=== PATIENT | female | born 1990 | race Caucasian/White ===

== ENCOUNTER → 2020-03-13 | Outpatient (CLI) | payer OTHER ==
--- NOTE | 2020-03-13 12:18 | KCIC ---
EXAMINATION: Magnetic resonance imaging (MRI) of the lumbar spine without contrast 03/13/2020 8:45 AM HISTORY: Lumbago TECHNIQUE: Multiplanar multi-weighted MRI of the lumbar spine was performed without intravenous contrast using the standard lumbar spine protocol. Contrast information: None administered. COMPARISON: None available. FINDINGS: There is minimal retrolisthesis of L5 on S1. Moderate disc height loss at L5-S1 with annular fissure. Vertebral bodies demonstrate normal signal intensity on all sequences. There are no compression fractures. The conus medullaris terminates at the level of L1. The distal spinal cord signal intensity is normal. Disc desiccation is identified at L4-L5 and L5-S1. Limited views of the abdomen and pelvis show no soft tissue abnormality. The aorta is normal. L1-L2: The disc is normal in configuration. There is no facet arthropathy. There is no neuroforaminal stenosis. There is no spinal canal stenosis. L2-L3: The disc is normal in configuration. There is no facet arthropathy. There is no neuroforaminal stenosis. There is no spinal canal stenosis. L3-L4: The disc is normal in configuration. There is no facet arthropathy. There is no neuroforaminal stenosis. There is no spinal canal stenosis. L4-L5: There is mild disc bulge with central disc protrusion. Mild facet arthropathy. Mild bilateral neuroforaminal stenosis. Mild spinal canal stenosis. There is mild narrowing of the left lateral recess. L5-S1: There is a circumferential disc bulge with central disc extrusion. Moderate facet arthropathy. Moderate to severe bilateral neuroforaminal stenosis. Mild spinal canal stenosis. IMPRESSION: Mild to moderate degenerative changes of the lumbar spine as described in detail above. Electronically signed by: Patricia Franco MD (03/13/2020 12:15 PM) [id number]
== END ==
LOC: KCIC MRI 08:13
PROVIDERS: ATTEND Physician Assistant Medical
DX: M47.817 Spondylosis without myelopathy or radiculopathy, lumbosacral region (principal); M48.07 Spinal stenosis, lumbosacral region
CPT/HCPCS: 72148

== ENCOUNTER → 2020-04-11 | Outpatient (CLI) | payer OTHER ==
[~2020-04-11] MED LIST: TRAM50TA PO
--- NOTE | 2020-04-11 08:52 | PDOC1 ---
INITIAL PAIN CONSULT DATE OF SERVICE: DOS: DATE: 04/11/20 TIME: 08:46 CHIEF COMPLAINT: Chief Complaint: Low back and left lower extremity pain HISTORY OF PRESENT ILLNESS: 29-year-old female with presents with history of pain low back left lower extremity for multiple years worse over the past 6 to 8 months without any specific injury or accident that she is aware of. Patient reports the pain is increasing in her low back rating the posterior gluteus posterior thigh posterior calf on the left side only worse with walking standing changing positions better with laying down but worse with prolonged sitting. Patient reports it wakes her from sleep about 3-4 times a night does not affect her bowel bladder control or ability to walk is mostly noticeable when she is sitting for prolonged periods or standing patient ports radiating the lower extremity describes pain as throbbing and shooting, more constant with time burning and aching as well. Patient rates her disability rating from 0-10 10 being the worst is a 3 with family home responsibilities 8 with recreation and social activity and sexual behavior for with occupation 0 with self-care and life support activities. Patient has been taking tramadol also naproxen and meloxicam all of which only decrease the pain by about 20%. Patient had physical therapy in January of this year and is still doing the exercises from therapy but she feels that it may actually be making the pain worse in the left leg. She did have an MRI scan of the lumbar spine showing L4-5 with a mild disc bulge mild bilateral neuroforaminal stenosis and mild narrowing of the left lateral recess L5-S1 shows circumferential disc bulge with central disc extrusion moderate to severe bilateral neuroforaminal stenosis and mild spinal canal stenosis. Patient reports no loss of motor function but significant fatigability with standing or sitting for prolonged periods. PAST MEDICAL HISTORY: PMH: Depression and anxiety, childbirth x2, cigarette smoking PREVIOUS SURGERIES: Past Surgical Hx: Tubal ligation, wisdom tooth extraction CURRENT MEDICATIONS: Current Meds: See chart ALLERGIES; Allergies: Coded Allergies: No Known Drug Allergies (Unverified , 04/11/20) FAMILY HISTORY: Family Hx: No major medical problems or conditions that she is aware of SOCIAL HISTORY: Social Hx: Patient drinks alcohol only rarely, smokes less than a pack of cigarettes and has for 12 years continues to smoke does not use any illegal illicit or recreational drugs has 2 children living at home is single and works in a seated occupation position lives locally in [facility] REVIEW OF SYSTEMS: ROS: Positive for those items mentioned in history of present illness, all systems are reviewed, otherwise negative, is complete full and well-documented on patient's chart PHYSICAL EXAM: VS: Blood pressure is 124/82 pulse 107 respirations 12 temperature is 90.2 F height is 5 feet 6 inches weight is 135 pounds PE: PHYSICAL EXAMINATION: GENERAL: The patient is awake, alert, oriented, appropriate, very pleasant demeanor HEENT: Shows normocephalic, atraumatic. Extraocular movements are intact and symmetrical. Oral cavity: Mucous membranes moist and pink. Dentition is intact. NECK: Shows anterior throat supple without palpable lymphadenopathy noted. Swallow reflex symmetrical. CHEST: Shows normal on inspection. Breath sounds are clear bilaterally, no rales rhonchi wheezes auscultated. HEART: Shows S1, S2 clear. No murmurs auscultated. ABDOMEN: Soft, nontender, nondistended, flat. No palpable organomegaly is noted. No rebound or guarding demonstrated. BACK: Shows spine grossly in the midline. Normal-appearing cervical lordotic curvature. There is slightly increased thoracic kyphosis, some minor flattening of the lumbar lordotic curvature. Lumbar paraspinous muscles show symmetrical on inspection, on palpation shows some moderate tenderness diffusely throughout the upper, middle and lower distribution of the paraspinous muscles without specific trigger points, without radiation of pain. The patient has good rotational motion of the lumbar spine, both laterally as well as extension and flexion without significant difficulty. No tenderness over the spinous processes, sacrum or sacroiliac regions. EXTREMITIES: Lower extremities show deep tendon reflexes 2+ in the patellar and tendo calcaneus tendons. Motor exam is 5 on a scale of 5 with right dorsiflexion, extension, quadriceps and hamstring flexion and 4/5 on the left. Peripheral pulses are 1+ posterior tibial. No peripheral edema is noted bilaterally. Lower extremities are warm and dry to touch, equal in color and appearance. Straight leg raise noted to be negative bilaterally. Gaenslen's and Joe's maneuvers are negative as well. The patient is able to stand, stand on her toes without difficulty or loss of balance walks with a normal- appearing gait for short distance in the office today not using any assistive device such as canes or walkers to ambulate. SKIN: Shows warm and dry, good turgor. No edema. No sores, rashes or bruising throughout. IMPRESSION: Impression: 29-year-old female with long history low back left lower extremity pain that worse over the past 8 months in a radicular fashion following an L5-S1 dermatomal distribution MRI scan lumbar spine as noted Cigarette smoking Plan: Options were discussed with the patient including conservative medical management physical therapies interventional techniques. Patient would like to pursue interventional techniques. We discussed a lumbar epidural steroid injection using descriptions as well as anatomical model to describe the procedure. Patient will wait for preauthorization with her insurance provider a nd would like to proceed. Patient will be given Medrol Dosepak called into her local pharmacy with instructions side effects be aware of discussed with the medication. Patient will follow up as scheduled for lumbar epidural steroid injection translaminar approach at the L5-S1 level. NABIL GOTTI MD Apr 11, 2020 08:52
== END | disposition home or self-care (01) ==
LOC: PNCL 08:10
PROVIDERS: ATTEND Anesthesiology
DX: M54.5 Low back pain (principal); M79.605 Pain in left leg; F32.9 Major depressive disorder, single episode, unspecified; F41.9 Anxiety disorder, unspecified; Z87.891 Personal history of nicotine dependence; Z98.51 Tubal ligation status; Z98.890 Other specified postprocedural states; Z79.899 Other long term (current) drug therapy
CPT/HCPCS: G0463

== ENCOUNTER → 2020-04-29 | Outpatient (CLI) | payer OTHER ==
[~2020-04-29] MED LIST changes: +IOHEXOL 180 MG/ML 10 ML VIAL. ONE; +methylPREDNISolone ACETATE 40 MG/ML VIAL. ONE; +methylPREDNISolone ACETATE 80 MG/ML VIAL. ONE
--- NOTE | 2020-04-29 08:36 | PDOC ---
Progress Note - Pain Clinic Date of Service: DOS: DATE: 04/29/20 TIME: 08:33 Diagnosis: Dx: Lumbar radiculopathy with lumbar degenerative disease lumbar spinal stenosis History or Present Illness: HPI: 29-year-old female returns follow-up status post initial evaluation and preauthorization for lumbar epidural steroid injection. Patient is obtained that now would like to proceed. Patient reports still pain low back and left lower extremity posterior gluteus posterior left thigh posterior calf radiating into the lower extremity. Patient ports aching and sharp shooting at times burning and constant in the low back patient ports a 9 on scale 10 is worse over the past week 7 on average for its least and is a 7 today. Patient reports no new motor or sensory deficits no new bowel bladder incontinence or other complaints. Physical Exam: VS: Blood pressure is 117/75 pulse 83 respirations 18 temperature 98.2 F height 5 feet 6 inches weight is 133 pounds PE: PHYSICAL EXAMINATION: GENERAL: The patient is awake, alert, oriented, appropriate, very pleasant demeanor HEENT: Shows normocephalic, atraumatic. Extraocular movements are intact and symmetrical. Oral cavity: Mucous membranes moist and pink. NECK: Shows anterior throat supple without palpable lymphadenopathy noted. Swallow reflex symmetrical. CHEST: Shows normal on inspection. Breath sounds are clear bilaterally. HEART: Shows S1, S2 clear. No murmurs auscultated. ABDOMEN: Soft, nontender, nondistended. No palpable organomegaly is noted. No rebound or guarding demonstrated. BACK: Shows spine grossly in the midline. Normal-appearing cervical lordotic curvature. There is slightly increased thoracic kyphosis, some minor flattening of the lumbar lordotic curvature. Lumbar paraspinous muscles show symmetrical on inspection, on palpation shows some moderate tenderness diffusely throughout the upper, middle and lower distribution of the paraspinous muscles without specific trigger points, without radiation of pain. The patient has good rotational motion of the lumbar spine, both laterally as well as extension and flexion without significant difficulty. No tenderness over the spinous processes, sacrum or sacroiliac regions. EXTREMITIES: Lower extremities show deep tendon reflexes 2+ in the patellar and tendo calcaneus tendons. Motor exam is 5 on a scale of 5 with right dorsiflexion, extension, quadriceps and hamstring flexion and 4/5 on the left. Peripheral pulses are 1+ posterior tibial. No peripheral edema is noted b ilaterally. Lower extremities are warm and dry to touch, equal in color and appearance. SKIN: Shows warm and dry, good turgor. No edema. No sores, rashes or bruising throughout. Procedure: Procedure: Options were discussed with the patient. Patient chart was reviewed as her current regimen updated current review of systems updated today as well. We will proceed with a lumbar epidural steroid injection today with fluoroscopic guidance. Risks were discussed including but not limited to: Bleeding, infection, possibility of epidural hematoma and subsequent neurological compromise, dural puncture, headaches, spinal cord and/or nerve damage, side effects of steroid medication, and poor results regarding pain control. Patient understands wished to proceed. Patient will return to the clinic in approximate 2 weeks for follow-up, was counseled as to return appointment activity level and side effects to be aware of. Medication Injected: Med Injected: Procedure is lumbar epidural steroid injection under local anesthetic using sterile prep and drape at the L5-S1 level using C-arm fluoroscopic guidance in both AP and lateral views medications injected is 120 mg Depo-Medrol + 10 mL preservative-free normal saline and 2 mL contrast- condition at discharge is stable patient tolerated procedure well had no complications. Condition at Discharge: Condition at Discharge: Condition at discharge stable, patient tolerated procedure well and had no complications. NABIL GOTTI MD Apr 29, 2020 08:36
== END | disposition home or self-care (01) ==
LOC: PNCL 07:53
PROVIDERS: ATTEND Anesthesiology
DX: M48.061 Spinal stenosis, lumbar region without neurogenic claudication (principal); M54.16 Radiculopathy, lumbar region; Z98.890 Other specified postprocedural states
CPT/HCPCS: 62323; J1030; J1040; Q9965

== ENCOUNTER → 2020-05-13 | Outpatient (CLI) | payer OTHER ==
[~2020-05-13] MED LIST changes: +DOCU-109 PO; +HYDR-2765 PO; -IOHEXOL 180 MG/ML 10 ML VIAL. ONE; -methylPREDNISolone ACETATE 40 MG/ML VIAL. ONE; -methylPREDNISolone ACETATE 80 MG/ML VIAL. ONE; +no meds
--- NOTE | 2020-05-13 08:40 | PDOC ---
Progress Note - Pain Clinic Date of Service: DOS: DATE: 05/13/20 TIME: 08:37 Diagnosis: Dx: Lumbar radiculopathy with lumbar degenerative disc disease lumbar spinal stenosis History or Present Illness: HPI: 29-year-old female returns follow-up status post lumbar epidural steroid injection x1. Patient reports about 75% improvement in the low back and left lower extremity pain for the first 2 weeks or so the pain returning now not quite to baseline but increasing the low back and left lower extremities radiating pain posterior gluteus posterior thigh on the left and posterior calf patient reports is worse with walking standing changing positions beginning to awaken her from sleep once again initially she was doing much better with distance walking doing household activities work activities standing for longer periods of time walking greater distances and sleeping better now is pain it awaken her from sleep about once every 5 hours or so if she lays on her left side especially. Patient reports her pain is a 9 on scale 10 is worse over the past week 7 on average for its least is a 5 today patient reports no new motor or sensory deficits no new bowel or bladder incontinence describes pain as aching and tight in the back shooting in the left lower extremity becoming more constant in the left leg with activity. Patient reports no bowel or bladder incontinence no new motor or sensory deficits. Physical Exam: VS: Blood pressure is 138/86 pulse 109 respirations 16 temperature 98.4 F height is 5 feet 6 inches weight is 135 pounds PE: PHYSICAL EXAMINATION: GENERAL: The patient is awake, alert, oriented, appropriate, very pleasant demeanor HEENT: Shows normocephalic, atraumatic. Extraocular movements are intact and symmetrical. NECK: Shows anterior throat supple without palpable lymphadenopathy noted. Swallow reflex symmetrical. CHEST: Shows normal on inspection. Breath sounds are clear bilaterally. HEART: Shows S1, S2 clear. No murmurs auscultated. ABDOMEN: Soft, nontender, nondistended. No palpable organomegaly is noted. BACK: Shows spine grossly in the midline. Normal-appearing cervical lordotic curvature. There is slightly increased thoracic kyphosis, some minor flattening of the lumbar lordotic curvature. Lumbar paraspinous muscles show symmetrical on inspection, on palpation shows some moderate tenderness diffusely throughout the upper, middle and lower distribution of the paraspinous muscles without specific trigger points, without radiation of pain. The patient has good rotational motion of the lumbar spine, both laterally as well as extension and flexion without significant difficulty. No tenderness over the spinous processes, sacrum or sacroiliac regions. EXTREMITIES: Lower extremities show deep tendon reflexes 2+ in the patellar and tendo calcaneus tendons. Motor exam is 5 on a scale of 5 with right dorsiflexion, extension, quadriceps and hamstring flexion and 4/5 on the left. Peripheral pulses are 1+ posterior tibial. No peripheral edema is noted bilaterally. Lower extremities are warm and dry to touch, equal in color and appearance. SKIN: Shows warm and dry, good turgor. No edema. No sores, rashes or bruising throughout. Procedure: Procedure: Options were discussed with the patient. Patient chart reviews her current medication regimen updated current review of systems updated today as well. We will preauthorize patient for a second lumbar epidural steroid injection as she did very well after the first with pain returning and radicular pattern and L5- S1 dermatomal distribution on the left. Patient in the meantime we will continue with stretching strengthening exercises daily activities and walking as tolerated. Medication Injected: Med Injected: None Condition at Discharge: Condition at Discharge: Condition at discharge stable NABIL GOTTI MD May 13, 2020 08:40
== END | disposition home or self-care (01) ==
LOC: PNCL 07:41
PROVIDERS: ATTEND Anesthesiology
DX: M51.16 Intervertebral disc disorders with radiculopathy, lumbar region (principal); M48.061 Spinal stenosis, lumbar region without neurogenic claudication; Z79.899 Other long term (current) drug therapy
CPT/HCPCS: 99212; G0463

== ENCOUNTER → 2020-05-24 | Outpatient (CLI) | payer OTHER ==
[~2020-05-24] MED LIST changes: +IOHEXOL 180 MG/ML 10 ML VIAL. ONE; +methylPREDNISolone ACETATE 40 MG/ML VIAL. ONE; +methylPREDNISolone ACETATE 80 MG/ML VIAL. ONE
--- NOTE | 2020-05-24 09:30 | PDOC ---
Progress Note - Pain Clinic Date of Service: DOS: DATE: 05/24/20 TIME: 09:27 Diagnosis: Dx: Lumbar radiculopathy with lumbar degenerative disc disease and lumbar spinal stenosis History or Present Illness: HPI: 29-year-old female returns to follow-up status post lumbar epidural steroid traction x1. Patient ports 75% improvement after the first injection pain returning now in the low back and left lower extremity mostly the posterior gluteus posterior thigh posterior calf. Patient reports worse with walking standing changing positions initially she was doing much better with all these activities as well as doing activities returning to work and to household activities and travel with greater ease and comfort but the pain is returning now in the left lower extremity and low back. Patient reports is radiating constant describes it as sharp shooting in the low back and left leg worse with standing change positions also been waking her from sleep occasionally but not every night. Patient reports pain is a 9 on scale 10 is worse over the past week 7 on average 5 its least and is a 5 today. Patient reports no new motor or sensory deficits no new bowel or bladder incontinence or other complaints. Physical Exam: VS: Blood pressure is 130/84 pulse 85 respirations are 16 temperature 99.0 F height is 5 feet 6 inches weight 134 pounds PE: PHYSICAL EXAMINATION: GENERAL: The patient is awake, alert, oriented, appropriate, very pleasant demeanor HEENT: Shows normocephalic, atraumatic. Extraocular movements are intact and symmetrical. NECK: Shows anterior throat supple without palpable lymphadenopathy noted. Swallow reflex symmetrical. CHEST: Shows normal on inspection. Breath sounds are clear bilaterally. HEART: Shows S1, S2 clear. No murmurs auscultated. ABDOMEN: Soft, nontender, nondistended. No palpable organomegaly is noted. No rebound or guarding demonstrated. BACK: Shows spine grossly in the midline. Normal-appearing cervical lordotic curvature. There is slightly increased thoracic kyphosis, some minor flattening of the lumbar lordotic curvature. Lumbar paraspinous muscles show symmetrical on inspection, on palpation shows some moderate tenderness diffusely throughout the upper, middle and lower distribution of the paraspinous muscles, but without specific trigger points, without radiation of pain. The patient has good rotational motion of the lumbar spine, both laterally as well as extension and flexion without significant difficulty. EXTREMITIES: Lower extremities show deep tendon reflexes 2+ in the patellar and tendo calcaneus tendons. Motor exam is 5 on a scale of 5 with right dorsiflexion, extension, quadriceps and hamstring flexion and 4/5 on the left. Peripheral pulses are 1+ posterior tibial. No peripheral edema is noted bilaterally. Lower extremities are warm and dry to touch, equal in color and appearance. SKIN: Shows warm and dry, good turgor. No edema. No sores, rashes or bruising throughout. Procedure: Procedure: Options were discussed with the patient. Patient chart reviews her current medication regimen updated current review of systems updated today as well. We will proceed with a second in a series lumbar epidural steroid action today with fluoroscopic guidance. Risks were discussed including but not limited to: Bleeding, infection, possibility of epidural hematoma and subsequent neurolog ical compromise, dural puncture, headaches, spinal cord and/or nerve damage, side effects of steroid medication, and poor results regarding pain control. Patient understands and wished to proceed. Patient will return to clinic in approximate 2 weeks for follow-up, was counseled as return appointment activity level, and side effects to be aware of. Medication Injected: Med Injected: Procedure is lumbar epidural steroid injection under local anesthetic using sterile prep and drape at the L5-S1 level using C-arm fluoroscopic guidance in both AP and lateral views medications injected is 120 mg Depo-Medrol + 10 mL preservative-free normal saline and 2 mL contrast- condition at discharge is stable patient tolerated procedure well had no complications. Condition at Discharge: Condition at Discharge: Condition at discharge stable, patient tolerated procedure well and had no complications. NABIL GOTTI MD May 24, 2020 09:30
--- NOTE | 2020-05-24 09:31 | PDOC4 ---
PROCEDURE Procedure Patient was consented for lumbar epidural steroid injection. Risks were dis cussed including but not limited to: Bleeding, infection, possibility of epidural hematoma and subsequent neurological compromise, dural puncture, headaches, spinal cord and/or nerve damage, side effects of steroid medication, and poor results regarding pain control. Patient understands and wished to proceed. Procedure is lumbar epidural steroid injection under local anesthetic using sterile prep and drape at the L5-S1 level using C-arm fluoroscopic guidance in both AP and lateral views medications injected is 120 mg Depo-Medrol + 10 mL preservative-free normal saline and 2 mL contrast- condition at discharge is stable patient tolerated procedure well had no complications. NABIL GOTTI MD May 24, 2020 09:31
== END | disposition home or self-care (01) ==
LOC: PNCL 08:41
PROVIDERS: ATTEND Anesthesiology
DX: M51.16 Intervertebral disc disorders with radiculopathy, lumbar region (principal); M48.061 Spinal stenosis, lumbar region without neurogenic claudication; Z79.899 Other long term (current) drug therapy
CPT/HCPCS: 62323; J1030; J1040; Q9965

== ENCOUNTER → 2020-06-07 | Outpatient (CLI) | payer OTHER ==
[~2020-06-07] MED LIST changes: -DOCU-109 PO; -HYDR-2765 PO; -IOHEXOL 180 MG/ML 10 ML VIAL. ONE; -methylPREDNISolone ACETATE 40 MG/ML VIAL. ONE; -methylPREDNISolone ACETATE 80 MG/ML VIAL. ONE
--- NOTE | 2020-06-07 08:34 | PDOC ---
Progress Note - Pain Clinic Date of Service: DOS: DATE: 06/07/20 TIME: 08:29 Diagnosis: Dx: Lumbar radiculopathy with lumbar degenerative disc disease and lumbar spinal stenosis History or Present Illness: HPI: 29-year-old female returns for follow-up status post lumbar epidural to injection x2. Patient reports about 55% improvement for the past 2 weeks or so after the second injection first injection was about 75% improved still some pain returning now into the low back and left lower extremity the posterior gluteus posterior thigh posterior calf in a L5-S1 dermatomal distribution. Patient rates her pain is a 10 on scale 10 is worse over the past week 8 on average 7 its least and is an 8 today patient reports while she was doing much better she was increasing her distance walking doing household activities work activities greater ease and comfort travel with greater ease and sleeping better at night. Patient reports pain is returned now over the past few days worse beginning awaken her from sleep once again describes pain is radiating constant aching and shooting in the lower extremity on the left side only. Patient reports no new motor or sensory deficits no new bowel or bladder incontinence or other complaints. Physical Exam: VS: Blood pressure is 130/85 pulse 90 respirations 16 temperature 98.4 F weight is 137 pounds PE: PHYSICAL EXAMINATION: GENERAL: The patient is awake, alert, oriented, appropriate, very pleasant demeanor HEENT: Shows normocephalic, atraumatic. Extraocular movements are intact and symmetrical. Oral cavity: Mucous membranes moist and pink. NECK: Shows anterior throat supple without palpable lymphadenopathy noted. Swallow reflex symmetrical. CHEST: Shows normal on inspection. Breath sounds are clear bilaterally. HEART: Shows S1, S2 clear. No murmurs auscultated. ABDOMEN: Soft, nontender, nondistended, flat. No palpable organomegaly is noted. BACK: Shows spine grossly in the midline. Normal-appearing cervical lordotic curvature. There is slightly increased thoracic kyphosis, some minor flattening of the lumbar lordotic curvature. Lumbar paraspinous muscles show symmetrical on inspection, on palpation shows some moderate tenderness diffusely throughout the upper, middle and lower distribution of the paraspinous muscles, but without specific trigger points, without radiation of pain. The patient has good rotational motion of the lumbar spine, both laterally as well as extension and flexion without significant difficulty. EXTREMITIES: Lower extremities show deep tendon reflexes 2+ in the patellar and tendo calcaneus tendons. Motor exam is 5 on a scale of 5 with right dorsiflexion, extension, quadriceps and hamstring flexion and 4/5 on the left. Peripheral pulses are 1+ posterior tibial. No peripheral edema is noted bilaterally. Lower extremities are warm and dry to touch, equal in color and appearance. SKIN: Shows warm and dry, good turgor. No edema. No sores, rashes or bruising throughout. Procedure: Procedure: Options were discussed with the patient. Patient's old chart reviews her current medication regimen updated current review of systems updated today as well. We will preauthorize patient for a third in the series lumbar epidural steroid injection she did very well after the last injection with pain returning down the low back and left lower extremity and L5-S1 dermatomal distribution. The meantime patient will continue with stretching and strength exercises walking daily and exercising as currently. Patient is given prescription for hydrocodone 7.5 mg with instructions side effects aware with the medication as well. Patient will return to the clinic once preauthorization is obtained for third translaminar approach lumbar epidural steroid injection at the L5-S1 level. Medication Injected: Med Injected: None Condition at Discharge: Condition at Discharge: Condition at discharge is stable. NABIL GOTTI MD Jun 07, 2020 08:34
== END | disposition home or self-care (01) ==
LOC: PNCL 07:49
PROVIDERS: ATTEND Anesthesiology
DX: M51.16 Intervertebral disc disorders with radiculopathy, lumbar region (principal); M48.061 Spinal stenosis, lumbar region without neurogenic claudication; Z79.899 Other long term (current) drug therapy
CPT/HCPCS: 99212; G0463

== ENCOUNTER → 2020-06-21 | Outpatient (CLI) | payer OTHER ==
[~2020-06-21] MED LIST changes: +IOHEXOL 180 MG/ML 10 ML VIAL. ONE; +methylPREDNISolone ACETATE 40 MG/ML VIAL. ONE; +methylPREDNISolone ACETATE 80 MG/ML VIAL. ONE
--- NOTE | 2020-06-21 08:20 | PDOC ---
Progress Note - Pain Clinic Date of Service: DOS: DATE: 06/21/20 TIME: 08:16 Diagnosis: Dx: Lumbar radiculopathy with lumbar degenerative disease and lumbar spinal stenosis History or Present Illness: HPI: 29-year-old female returns follow-up status post lumbar epidural to injection x2. Patient reports she did very well after last injection by 35% overall not as a proved after the first injection but still significant pain reduction which is returning down the low back bilateral lower extremities worse on the left than the right in the posterior gluteus on the left posterior calf posterior thigh with the right hip pain as well on the posterior aspect of the gluteus and thigh patient reports is a 9 on scale 10 is worse over the past week 7 on average 6 its least is a 7 today. Patient reports it stabbing and constant aching sharp shooting worse with walking and standing better with sitting or laying down is been waking her from sleep about every 3-4 hours as well. Patient reports no new motor or sensory deficits no new bowel or bladder incontinence or other complaints. Patient was waiting for preauthorization and has obtained that now would like to proceed. Physical Exam: VS: Blood pressure is 132/72 pulse 96 respirations 16 temperature 98.8 was Fahrenheit weight 138 pounds PE: PHYSICAL EXAMINATION: GENERAL: The patient is awake, alert, oriented, appropriate, very pleasant demeanor HEENT: Shows normocephalic, atraumatic. Extraocular movements are intact and symmetrical. NECK: Shows anterior throat supple without palpable lymphadenopathy noted. Swallow reflex symmetrical. CHEST: Shows normal on inspection. Breath sounds are clear bilaterally. HEART: Shows S1, S2 clear. No murmurs auscultated. ABDOMEN: Soft, nontender, nondistended, flat. No palpable organomegaly is noted. BACK: Shows spine grossly in the midline. Normal-appearing cervical lordotic curvature. There is slightly increased thoracic kyphosis, some minor flattening of the lumbar lordotic curvature. Lumbar paraspinous muscles show symmetrical on inspection, on palpation shows some moderate tenderness diffusely throughout the upper, middle and lower distribution of the paraspinous muscles, but without specific trigger points, without radiation of pain. The patient has good rotational motion of the lumbar spine, both laterally as well as extension and flexion without significant difficulty. EXTREMITIES: Lower extremities show deep tendon reflexes 2+ in the patellar and tendo calcaneus tendons. Motor exam is 5 on a scale of 5 with right dorsiflexion, extension, quadriceps and hamstring flexion and 4/5 on the left. Peripheral pulses are 1+ posterior tibial. No peripheral edema is noted bilaterally. Lower extremities are warm and dry to touch, equal in color and appearance. SKIN: Shows warm and dry, good turgor. No edema. No sores, rashes or bruising throughout. Procedure: Procedure: Options were discussed with the patient. Patient will chart reviews her current medication regimen updated current review of systems updated today as well. We will proceed with a third in the series lumbar epidural steroid injection today with fluoroscopic guidance. Risks were discussed including but not limited to: Bleeding, infection, possibility of epidural hematoma and subsequent neurological compromise, dural puncture, headaches, spinal cord and/or nerve dam age, side effects of steroid medication, and poor results regarding pain control. Patient understands and wished to proceed. Patient will return to clinic in approximate 2 weeks for follow-up, was counseled as to return appointment activity level and side effects to be aware of. Patient be given refill prescription for hydrocodone 7.5 mg with instructions side effects aware with the medication as well. Medication Injected: Med Injected: Procedure is lumbar epidural steroid injection under local anesthetic using sterile prep and drape at the L5-S1 level using C-arm fluoroscopic guidance in both AP and lateral views medications injected is 120 mg Depo-Medrol + 10 mL preservative-free normal saline and 2 mL contrast- condition at discharge is stable patient tolerated procedure well had no complications. Condition at Discharge: Condition at Discharge: Condition at discharge stable, patient tolerated the procedure well and had no complications. NABIL GOTTI MD Jun 21, 2020 08:20
--- NOTE | 2020-06-21 08:21 | PDOC4 ---
PROCEDURE Procedure Patient was consented for lumbar epidural steroid injection. Risks were dis cussed including but not limited to: Bleeding, infection, possibility of epidural hematoma and subsequent neurological compromise, dural puncture, headaches, spinal cord and/or nerve damage, side effects of steroid medication, and poor results regarding pain control. Patient understands and wished to proceed. Procedure is lumbar epidural steroid injection under local anesthetic using sterile prep and drape at the L5-S1 level using C-arm fluoroscopic guidance in both AP and lateral views medications injected is 120 mg Depo-Medrol + 10 mL preservative-free normal saline and 2 mL contrast- condition at discharge is stable patient tolerated procedure well had no complications. NABIL GOTTI MD Jun 21, 2020 08:20
== END | disposition home or self-care (01) ==
LOC: PNCL 07:43
PROVIDERS: ATTEND Anesthesiology
DX: M51.16 Intervertebral disc disorders with radiculopathy, lumbar region (principal); M48.061 Spinal stenosis, lumbar region without neurogenic claudication; Z79.899 Other long term (current) drug therapy
CPT/HCPCS: 62323; J1030; J1040; Q9965

== ENCOUNTER → 2020-07-29 | Outpatient (CLI) | payer OTHER ==
[~2020-07-29] MED LIST changes: -IOHEXOL 180 MG/ML 10 ML VIAL. ONE; -methylPREDNISolone ACETATE 40 MG/ML VIAL. ONE; -methylPREDNISolone ACETATE 80 MG/ML VIAL. ONE
--- NOTE | 2020-07-29 09:30 | PDOC ---
Progress Note - Pain Clinic Date of Service: DOS: DATE: 07/29/20 TIME: 09:27 Diagnosis: Dx: Lumbar radiculopathy with lumbar degenerative disease lumbar spinal stenosis History or Present Illness: HPI: 29-year-old female returns for follow-up status post lumbar epidural tear injection x3. Last seen June 21, 2020. Patient reports initially about 75% improvement after the last injection the pain was returning very quickly after about a week pain returned in the low back and left lower extremity posterior gluteus posterior thigh posterior calf worse with walking and standing pick point is worse becoming much more noticeable and painful as well as weak in the left leg patient where she has been stumbling has had significant weakness now involved with the left leg which is progressing. Patient reports her pain is a 10 on scale 10 is worse over the past week 7 on average 6 its least is a 7 today. Patient describes as sharp and tight shooting in the leg coming more constant and with weakness involved in the left lower extremity as well. We reviewed patient's MRI scan from March 2020 showing some severe narrowing at the L5-S1 level with moderate to severe bilateral neuroforaminal stenosis insert functional disc bulge with central disc extrusion. Patient reports no new motor or sensory deficits no new bowel or bladder incontinence but progressive weakness in the left leg. Physical Exam: VS: Pressure is 118/71 pulse 85 respirations 18 temperature 98.5 F height is 5 feet 6 inches weight 136 pounds PE: PHYSICAL EXAMINATION: GENERAL: The patient is awake, alert, oriented, appropriate, very pleasant demeanor HEENT: Shows normocephalic, atraumatic. Extraocular movements are intact and symmetrical. Oral cavity: Mucous membranes moist and pink. NECK: Shows anterior throat supple without palpable lymphadenopathy noted. Swallow reflex symmetrical. CHEST: Shows normal on inspection. Breath sounds are clear bilaterally no rales or rhonchi auscultated. HEART: Shows S1, S2 clear. No murmurs auscultated. ABDOMEN: Soft, nontender, nondistended, flat. No palpable organomegaly is noted. BACK: Shows spine grossly in the midline. Normal-appearing cervical lordotic curvature. There is slightly increased thoracic kyphosis, some minor flattening of the lumbar lordotic curvature. Lumbar paraspinous muscles show symmetrical on inspection, on palpation shows some moderate tenderness diffusely throughout the upper, middle and lower distribution of the paraspinous muscles, but without specific trigger points, without radiation of pain. The patient has good rotational motion of the lumbar spine, both laterally as well as extension and flexion without significant difficulty. EXTREMITIES: Lower extremities show deep tendon reflexes 2+ in the patellar and tendo calcaneus tendons. Motor exam is 5 on a scale of 5 with right dorsiflexion, extension, quadriceps and hamstring flexion and 4/5 on the left. Peripheral pulses are 1+ posterior tibial. No peripheral edema is noted bilaterally. Lower extremities are warm and dry to touch, equal in color and appearance. SKIN: Shows warm and dry, good turgor. No edema. No sores, rashes or bruising throughout. Procedure: Procedure: Options discussed with the patient. Patient chart reviews her current medication regimen updated current review of systems updated today as well. We will make referral for neurosurgical evaluation as patient has had 3 injections initially did well but now with increasing pain in the left lower extremity radicular fashion following L5-S1 dermatomal distribution with increasing weakness and fatigability of the left leg also. Patient will follow up after neurosurgical appointment as scheduled. Patient is given refill prescription for hydrocodone with instructions side effects to be aware of the medication. Medication Injected: Med Injected: None Condition at Discharge: Condition at Discharge: Condition at discharge is stable. NABIL GOTTI MD Jul 29, 2020 09:30
== END | disposition home or self-care (01) ==
LOC: PNCL 08:45
PROVIDERS: ATTEND Anesthesiology
DX: M51.16 Intervertebral disc disorders with radiculopathy, lumbar region (principal); M48.061 Spinal stenosis, lumbar region without neurogenic claudication; Z79.899 Other long term (current) drug therapy
CPT/HCPCS: 99212; G0463

== ENCOUNTER → 2020-09-09 | Outpatient (CLI) | payer OTHER ==
--- NOTE | 2020-09-06 16:42 | PREOP HP ---
DATE OF SERVICE: 09/12/2020 PREOPERATIVE HISTORY AND PHYSICAL HISTORY OF PRESENT ILLNESS: The patient is a pleasant 30-year-old who has a greater than 1 year history of back and left leg pain. The pain is in the buttock, posterior thigh and radiates down to the knee. She denies weakness. The problem has been slowly worsening. She says her pain is 7/10, usually and can reach 9/10 at its worst. Standing or sitting too long increases her pain. Changing positions can help her. She is taking hydrocodone. She underwent lumbar epidural steroid injections, which she said helped her for a few days. In 02/2020, she underwent physical therapy, which she said made the problem worse. CURRENT MEDICATIONS: Hydrocodone. PAST MEDICAL HISTORY: Anxiety. PAST SURGICAL HISTORY: Tubal ligation. FAMILY HISTORY: Spine problems. SOCIAL HISTORY: Employed, single, smokes half pack per day for 13 years. Drinks 4 alcoholic beverages 1-2 times per week. ALLERGIES: No known drug allergies. REVIEW OF SYSTEMS: A 12-point review of systems was performed and is noncontributory except that mentioned above. PHYSICAL EXAMINATION: GENERAL: Alert, pleasant, in no acute distress. HEENT: Head is normocephalic, atraumatic. SKIN: Warm and dry. MUSCULOSKELETAL: Lumbar paraspinal muscle bulk is normal. Restricted range of motion of the lumbar spine, [id number] tenderness of the lower lumbar spine on palpation, normal range of motion of the lower extremities bilaterally. EXTREMITIES: No clubbing, cyanosis or edema. NEUROLOGIC: Alert and oriented x 3. Strength is 5/5 in the lower extremities, sensory was intact to light touch in the lower extremities except for decrease of the lateral aspect of her left foot, reflexes were present and symmetric in the lower extremities. Normal gait. IMAGING DATA: I reviewed her lumbar MRI scan. There is circumferential disk bulging with a large central disc extrusion at L5-S1. There is severe bilateral neuroforaminal stenosis and lateral recess narrowing related to this. ASSESSMENT AND PLAN: The patient has a significant left lumbar radiculopathy and a large disc herniation with lateral recess narrowing at L5-S1. My recommendation is that she undergo a left L5-S1 hemilaminotomy and microdiskectomy. I explained to her the nature of the surgery and expected postoperative course. I spoke with her about the fact that she has a narrowing on the right side and sometimes in the future that could become symptomatic. I spoke about the rationale for surgery, the risks involved and the expected postoperative course. She understands and would like to go ahead. ORI/FRANSISCO/PARI DR: Mohamud TID: [id number] MTDD
[~2020-09-09] MED LIST changes: +DOCU-109 PO; +HYDR-2765 PO
[2020-09-09 15:49] LABS: BASO % 0 % (0-3); EOS # 0.2 x10^3/uL (0.0-0.7); EOS % 2 % (0-3); HEMATOCRIT 36.2 % (36.0-47.0); HEMOGLOBIN 12.6 g/dL (12.0-15.5); LYMPH # 2.9 x10^3/uL (1.0-4.8); LYMPH % 33 % (24-48); MEAN CORPUSCULAR HEMOGLOBIN 33 pg (25-35); MEAN CORPUSCULAR HGB CONC 35 g/dL (31-37); MEAN CORPUSCULAR VOLUME 94 fL (79-100); MONO # 0.6 x10^3/uL (0.0-1.1); MONO % 6 % (0-9); NEUT % 58 % (31-73); PLATELET COUNT 221 x10^3/uL (140-400); RED BLOOD COUNT 3.84 x10^6/uL (3.50-5.40); RED CELL DISTRIBUTION WIDTH 12.1 % (11.5-14.5); WHITE BLOOD COUNT 8.7 x10^3/uL (4.0-11.0)
[2020-09-09 16:08] LABS: ALBUMIN 4.1 g/dL (3.4-5.0); ALBUMIN/GLOBULIN RATIO 1.3 (1.0-1.7); CALCIUM 8.8 mg/dL (8.5-10.1); CREATININE 0.5 mg/dL (0.6-1.0); GFR 143.9; POTASSIUM 3.8 mmol/L (3.5-5.1); TOTAL BILIRUBIN 0.2 mg/dL (0.2-1.0); TOTAL PROTEIN 7.3 g/dL (6.4-8.2)
== END ==
LOC: SURGPAT 13:27
PROVIDERS: ATTEND Neurological Surgery
DX: Z01.812 Encounter for preprocedural laboratory examination (principal); M51.17 Intervertebral disc disorders with radiculopathy, lumbosacral region; Z20.822 Contact with and (suspected) exposure to COVID-19
CPT/HCPCS: 80053; 85025; 87641; U0003; U0005

== ENCOUNTER 2020-09-12 06:40 | Day surgery (SDC) | payer OTHER ==
[2020-09-11 09:04] VITALS: BP 136/92
[~2020-09-12] VITALS: Ht 167.6 cm; Wt 136.0 kg
[~2020-09-12 06:40] MED LIST changes: -DOCU-109 PO; -HYDR-2765 PO; +HYDROmorphone 2 MG/ML VIAL IVP PRN; +IV RINGERS,LACTATED 1000ML 1,000 ML IV SCH; +MORPHINE SULFATE 2 MG/ML VIAL. IVP PRN; +PROCHLORPERAZINE 10 MG/2 ML VIAL. IVP PRN; +fentaNYL PF VIAL 100 MCG/2 ML VIAL IVP PRN
[2020-09-12 07:16] VITALS: BP 124/64
[2020-09-12] MEDS ORDERED: HYDR-2765 PO (07:25)
[2020-09-12] MEDS ORDERED: KETOROLAC 60 MG/2 ML VIAL. ONE (07:51)
[2020-09-12] MEDS ORDERED: GELATIN SPONGE SIZE 100. ONE (07:51)
[2020-09-12] MEDS ORDERED: THROMBIN TOPICAL 20,000 UNIT SPRAY.SYRN KIT TP ONE (07:51)
[2020-09-12] MEDS ORDERED: BUPIVACAINE-EPI 0.5%-1:200000 MPF 30 ML VIAL. ONE (07:51)
[2020-09-12] MEDS ORDERED: LIDOCAINE 2% PF 5 ML VIAL. ONE (08:18)
[2020-09-12] MEDS ORDERED: PROPOFOL 10 MG/ML (20ML) VIAL. IV ONE (08:18)
[2020-09-12] MEDS ORDERED: ROCURONIUM 50 MG/5 ML VIAL. ONE (08:18)
[2020-09-12] MEDS ORDERED: fentaNYL PF VIAL 100 MCG/2 ML VIAL ONE ×2 (08:19→10:38)
[2020-09-12] MEDS ORDERED: REMIFENTANIL 2 MG VIAL. IV ONE (08:29)
[2020-09-12] MEDS ORDERED: fentaNYL PF VIAL 250 MCG/5 ML VIAL ONE (08:30)
[2020-09-12] MEDS ORDERED: MIDAZOLAM HCL/PF 2 MG/2 ML VIAL. ONE (08:30)
[2020-09-12] MEDS ORDERED: DESFLURANE > 120 MINUTES IH ONE (09:30)
[2020-09-12] MEDS ORDERED: PROPOFOL 50 ML IV ONE (10:12)
[2020-09-12] MEDS ORDERED: ONDANSETRON PF 4 MG/2 ML VIAL. ONE (10:12)
[2020-09-12] MEDS ORDERED: DEXAMETHASONE SOD PHOS 4 MG/ML VIAL ONE (10:12)
[2020-09-12] MEDS ORDERED: 0.9 % SODIUM CHLORIDE 20 ML VIAL. IJ ONE ×2 (10:13)
[2020-09-12] MEDS ORDERED: PHENYLEPHRINE in 0.9% NACL PF 1 MG/10 ML SYRINGE. IV ONE (10:21)
[2020-09-12] MEDS ORDERED: PROCHLORPERAZINE 10 MG/2 ML VIAL. ONE (10:38)
[2020-09-12] MEDS ORDERED: GLYCOPYRROLATE 1 MG/5 ML VIAL. ONE (10:42)
[2020-09-12] MEDS ORDERED: NEOSTIGMINE METHYLSULFATE 5 MG/5 ML SYRINGE. ONE (10:42)
[2020-09-12] MEDS ORDERED: DOCU-109 PO (11:03)
--- NOTE | 2020-09-12 11:05 | DISCH ---
DISCHARGE INSTRUCTIONS Condition on Discharge Condition on Discharge: Stable Activity After Discharge Activity Instructions for Disc: Activity as tolerated, Avoid exertion Other activity instructions: no driving for a week Bathing Instructions: Shower-keep dressing dry, No Tub Bath until see Lifting Instructions after Dis: No heavy lifting, No pulling or pushing, Do not lift >10 pounds Diet after Discharge Additional Diet Restrictions: resume home diet Wound Incision Care Wound/Incision Care: Ice to area for comfort Other wound/incision instructi: may remove dressing in 48 hours if dry, leave steri strips in place Contacting the after DC Call your doctor for: Concerns you may have Follow-Up Follow up with: Dr. Raymond's nurse in 2 weeks [phone] ELIZABETH RAYMOND MD September 12, 2020 11:05
[2020-09-12] MEDS ORDERED: HYDROcodone/APAP 7.5/325MG 1 TAB TABLET PO ONE (12:00)
[2020-09-12 12:27] VITALS: BP 128/68
--- NOTE | 2020-09-12 13:59 | OP ---
DATE OF SURGERY: 09/12/2020 PREOPERATIVE DIAGNOSIS: Herniated lumbar disc, L5-S1 with left lumbar radiculopathy. POSTOPERATIVE DIAGNOSIS: Herniated lumbar disc, L5-S1 with left lumbar radiculopathy. OPERATION PERFORMED: Hemilaminotomy and microdiscectomy, L5-S1, left. The operation done with the EMG monitoring, SSEP monitoring, fluoroscopy, microscopic dissection. SURGEON: Darryl Leon M.D. TROLLEY WIRE INSTALLER: CHEMA Barlow, assisted with the surgery. She assisted with the exposure, the microdecompression, the discectomy and closure. OPERATIVE INDICATIONS: The patient is a pleasant 30-year-old with a long history of back and left leg pain, which has failed conservative measures. On imaging studies, there is a broad-based disc herniation at L5-S1 with bilateral lateral recess narrowing and I recommended lumbar microsurgery. Because of her age, even though it was a broad-based disc, I felt that the symptomatic side only should be operated and decompressed. This was discussed with her. She understood the surgery, the rationale and expected postoperative course, and wished to go ahead. DESCRIPTION OF PROCEDURE: Under general endotracheal anesthesia, the patient was positioned prone on the Logan table. Lumbar region was prepped and draped in the standard fashion. AUSTYN hose and AV impulse boots were applied for DVT prophylaxis. A microscope was draped, fluoroscopy was draped and brought in the field. Monitoring was established. Ancef 2 grams given less than one hour prior to initiation of surgery. Using fluoroscopic guidance, a small midline incision was made in the L5-S1 interspace, dissected down through skin and subcutaneous tissue, reflecting the paraspinal muscles and placed a [place]aton microdisk retractor, brought in the microscope and using the high speed air drill, I burred down a hemilaminotomy and then trimmed away thickened ligamentum flavum exposing the dura and the exiting S1 root. I gently retracted medially. There was bulging disc beneath the root, which was quite soft and I incised the ligament and entered the disc space and performed a generous discectomy. As I worked, the area became very well decompressed. There were a number of large epidural veins, which I did coagulate. Hemostasis was excellent throughout the operation. I did perform a partial foraminotomy. At this point, then I had an excellent decompression, the root was quite free. I irrigated copiously. I had perfect hemostasis. I removed the retractor, obtained hemostasis in the muscle, irrigated copiously. There was no bleeding from the muscle. I then closed the fascia and subcutaneous tissue with absorbable sutures and skin was closed with 4-0 subcuticular stitch. I felt the surgery went very well. JUANITA/MICHAEL/MATILDA DR: Amy TID: [id number] MILAN
--- NOTE | 2020-09-17 14:57 | PATHOLOGY ---
[facility] Accession Number: [id number] . 01 Material submitted: . vertebral column - LUMBAR DISC AND DECOMPRESSION. Modifiers: LUMBAR . 01 Clinical history: . LUMBAR HERNIATED DISC, RADICULOPATHY LUMBAR MICRODISCECTOMY L5-S1 . 02 Diagnosis: Segments of fibrocartilaginous and skeletal muscle tissue and bone, lumbar disc and decompression: - Degenerative changes of fibrocartilaginous tissue. (JPM:blayne; 09/17/2020) S 09/17/2020 0814 Local . 02 Comment: There is no evidence of an acute inflammatory process or malignancy. (JPM:blayne; 09/17/2020) . 02 Electronically signed: . Nadeem Larry MD, Pathologist NPI- [id number] . 01 Gross description: . The specimen is received in formalin, labeled "Anitha Salinas, lumbar disc and decompression" is a 3 x 2.5 x 0.6 cm aggregate of dense fibroconnective tissue and scant bone. Water Trainer decalcified sections are submitted in A1.([facility]; 09/12/2020) YARIEL/YARIEL 09/17/2020 0812 Local . 02 Microscopic: . . . 02 Pathologist provided ICD-10: M51.36 . 02 CPT . 774693, [id number] Specimen Comment: A courtesy copy of this report has been sent to [phone] Specimen Comment: Report sent to Performed at: 01 [facility] [address], [place] [id number] MD Michael Urias MD Phone: [phone] Performed at: 02 [facility] [place] [id number] MD Nadeem Larry MD Phone: [phone]
--- NOTE | 2020-09-18 02:22 | PREOP HP ---
DATE OF SERVICE: 09/12/2020 PREOPERATIVE HISTORY AND PHYSICAL HISTORY OF PRESENT ILLNESS: The patient is a pleasant 30-year-old who has a greater than 1 year history of back and left leg pain. The pain is in the buttock, posterior thigh and radiates down to the knee. She denies weakness. The problem has been slowly worsening. She says her pain is 7/10, usually and can reach 9/10 at its worst. Standing or sitting too long increases her pain. Changing positions can help her. She is taking hydrocodone. She underwent lumbar epidural steroid injections, which she said helped her for a few days. In 02/2020, she underwent physical therapy, which she said made the problem worse. CURRENT MEDICATIONS: Hydrocodone. PAST MEDICAL HISTORY: Anxiety. PAST SURGICAL HISTORY: Tubal ligation. FAMILY HISTORY: Spine problems. SOCIAL HISTORY: Employed, single, smokes half pack per day for 13 years. Drinks 4 alcoholic beverages 1-2 times per week. ALLERGIES: No known drug allergies. REVIEW OF SYSTEMS: A 12-point review of systems was performed and is noncontributory except that mentioned above. PHYSICAL EXAMINATION: GENERAL: Alert, pleasant, in no acute distress. HEENT: Head is normocephalic, atraumatic. SKIN: Warm and dry. MUSCULOSKELETAL: Lumbar paraspinal muscle bulk is normal. Restricted range of motion of the lumbar spine, [id number] tenderness of the lower lumbar spine on palpation, normal range of motion of the lower extremities bilaterally. EXTREMITIES: No clubbing, cyanosis or edema. NEUROLOGIC: Alert and oriented x 3. Strength is 5/5 in the lower extremities, sensory was intact to light touch in the lower extremities except for decrease of the lateral aspect of her left foot, reflexes were present and symmetric in the lower extremities. Normal gait. IMAGING DATA: I reviewed her lumbar MRI scan. There is circumferential disk bulging with a large central disk extrusion at L5-S1. There is severe bilateral neuroforaminal stenosis and lateral recess narrowing related to this. ASSESSMENT AND PLAN: The patient has a significant left lumbar radiculopathy and a large disk herniation with lateral recess narrowing at L5-S1. My recommendation is that she undergo a left L5-S1 hemilaminotomy and microdiskectomy. I explained to her the nature of the surgery and expected postoperative course. I spoke with her about the fact that she has a narrowing on the right side and sometimes in the future that could become symptomatic. I spoke about the rationale for surgery, the risks involved and the expected postoperative course. She understands and would like to go ahead. ORI/FRANSISCO/PARI DR: Mohamud TID: [id number]
== END 2020-09-12 12:53 | disposition home or self-care (01) ==
LOC: SURG 06:40
PROVIDERS: ATTEND Neurological Surgery
DX: M51.17 Intervertebral disc disorders with radiculopathy, lumbosacral region (principal); F41.9 Anxiety disorder, unspecified; F32.9 Major depressive disorder, single episode, unspecified; Z98.51 Tubal ligation status; Z98.890 Other specified postprocedural states; Z79.899 Other long term (current) drug therapy; Z87.891 Personal history of nicotine dependence; Z72.89 Other problems related to lifestyle
CPT/HCPCS: 63030; 81025; 88304; 88311; 97116; 97162; 97530; A4213; A4364; A4556; A4930; A6254; A6258; J0690; J0780; J1100; J1885; J2250; J2370; J2405; J2704; J2710; J3010; J3490; 76000; A4222; A4223; A4452

== ENCOUNTER → 2021-02-25 | Outpatient (CLI) | payer OTHER ==
[~2021-02-25] MED LIST changes: +DOCU-109 PO; +GADOTERATE 7.5 MMOL/15ML VIAL. IVP ONE; +HYDR-2765 PO; -HYDROmorphone 2 MG/ML VIAL IVP PRN; -IV RINGERS,LACTATED 1000ML 1,000 ML IV SCH; -MORPHINE SULFATE 2 MG/ML VIAL. IVP PRN; -PROCHLORPERAZINE 10 MG/2 ML VIAL. IVP PRN; -fentaNYL PF VIAL 100 MCG/2 ML VIAL IVP PRN
--- NOTE | 2021-02-25 13:51 | KCIC ---
EXAM: Lumbar spine MRI without contrast. HISTORY: Radiculopathy. TECHNIQUE: Multiplanar, multisequence magnetic resonance imaging of the lumbar spine was performed wi thout contrast. COMPARISON: 03/13/2020 FINDINGS: There is minimal lumbar scoliosis. There is 3 mm retrolisthesis of L5 on S1. There is disc desiccation at L4-L5 and L5-S1. There is endplate remodeling and disc space narrowing at L5-S1. There is no fracture or suspicious osseous lesion. The conus terminates at L1. At L1-L2, L2-L3 and L3-L4, there is no stenosis. At L4-L5, there is a posterior central disc protrusion superimposed on a disc bulge and endplate misbah deling. There is mild central canal stenosis. At L5-S1, there is a posterior central disc protrusion with annular tear and minimal inferior extrusi on superimposed on a disc bulge and endplate osteophytosis. There is mild retrolisthesis. There are i nterval left hemilaminectomy changes. There is suspected scar/granulation tissue within the laminecto my decompression space and slightly effacing the left lateral recess. There is mild bilateral foramin al stenosis with suspected abutment of the exiting left greater than right L5 nerve roots. There is m ild central canal stenosis and narrowing of the lateral recesses. IMPRESSION: 1. L5-S1: Interval left hemilaminectomy and suspected microdiscectomy changes. There is a stable post erior central disc protrusion with annular tear and minimal inferior extrusion at this level and ther e is stable slight retrolisthesis, contributing to mild bilateral foraminal stenosis and abutment of the exiting L5 nerve root and mild central canal stenosis and narrowing of the lateral recesses. Ther e is slight effacement of the left lateral recess and laminectomy decompression space likely due to s car/granulation tissue. 2. L4-L5: Stable posterior central disc protrusion superimposed on a disc bulge and endplate remodeli ng, resulting in mild central canal stenosis. Electronically signed by: Margarita Capone MD (02/25/2021 1:48 PM) [id number]
== END ==
LOC: KCIC MRI 12:36
PROVIDERS: ATTEND Neurological Surgery
DX: M51.17 Intervertebral disc disorders with radiculopathy, lumbosacral region (principal); M41.86 Other forms of scoliosis, lumbar region; M48.07 Spinal stenosis, lumbosacral region
CPT/HCPCS: 72158; A9575

== ENCOUNTER → 2021-04-21 | Outpatient (CLI) | payer OTHER ==
[~2021-04-21] MED LIST changes: -GADOTERATE 7.5 MMOL/15ML VIAL. IVP ONE; +IOHEXOL 180 MG/ML 10 ML VIAL. ONE; +[UNRECOGNIZED DRUG - REMARK]; +methylPREDNISolone ACETATE 40 MG/ML VIAL. ONE; +methylPREDNISolone ACETATE 80 MG/ML VIAL. ONE
--- NOTE | 2021-04-21 12:39 | PDOC ---
Progress Note - Pain Clinic Date of Service: DOS: DATE: 04/21/21 TIME: 12:35 Diagnosis: Dx: Lumbar radiculopathy lumbar degenerative disc disease and lumbar spinal stenosis History or Present Illness: HPI: 30-year-old female presents with history of pain low back and left lower extremity, and underwent surgery in August of this year with resolution of the left lower extremity pain but now pain developing on the right side in a radicular fashion posterior gluteus posterior thigh posterior calf to the knee mostly but occasionally right below it patient reports this is come up over the past 2 months or so were initially was only on the left side is now only on the right side and the surgery did seem to help her left-sided pain significantly patient rates her pain on the right side now is a 10 on scale 10 is worst 9 on average 7 its least is a 7 today tight and shooting constant worse with walking standing changing positions wakes her from sleep at least twice a night patient reports no loss of motor function with significant fatigability with the right lower extremity with ambulation. Patient reports no bowel or bladder incontinence. MRI scan dated February 25, 2021 showing L5-S1 interval left hemilaminectomy and microdiscectomy changes stable posterior central disc protrusion with annular tear and minimal inferior extrusion at this level and there is stable slight retrolisthesis contributing mild bilateral foraminal stenosis and abutment of the exiting L5 nerve root and mild central canal stenosis and narrowing of the lateral recesses. Physical Exam: VS: Blood pressure is 146/84 pulse 81 respirations are 18 temperature is 90.1 F weight is 145 pounds PE: PHYSICAL EXAMINATION: GENERAL: The patient is awake, alert, oriented, appropriate, very pleasant in demeanor HEENT: Shows normocephalic, atraumatic. Extraocular movements are intact and symmetrical. Oral cavity: Mucous membranes moist and pink. Dentition is intact. NECK: Shows anterior throat supple without palpable lymphadenopathy noted. Swallow reflex symmetrical. CHEST: Shows normal on inspection. Breath sounds are clear bilaterally, no rales or rhonchi. HEART: Shows S1, S2 clear. No murmurs auscultated. ABDOMEN: Soft, nontender, nondistended. No palpable organomegaly is noted. BACK: Shows spine grossly in the midline. Normal-appearing cervical lordotic curvature. There is slightly increased thoracic kyphosis, some flattening of the lumbar lordotic curvature with well-healed midline surgical scar noted and tattooing. Lumbar paraspinous muscles show symmetrical on inspection, on palpation shows some moderate tenderness diffusely throughout the upper, middle and lower distribution of the paraspinous muscles, but without specific trigger points, without radiation of pain. The patient has good rotational motion of the lumbar spine, both laterally as well as extension and flexion without significant difficulty. No tenderness over the spinous processes, sacrum or sacroiliac regions. EXTREMITIES: Lower extremities show deep tendon reflexes 2+ in the patellar and tendo calcaneus tendons. Motor exam is 4 on a scale of 5 with right dorsiflexion, extension, quadriceps and hamstring flexion and 5/5 on the left. Peripheral pulses are 1+ posterior tibial. No peripheral edema is noted bilaterally. Lower extremities are warm and dry to touch, equal in color and appearance. SKIN: Shows warm and dry, good turgor. No edema. No sores, rashes or bruising throughout. Procedure: Procedure: Options discussed with the patient. Patient chart reviews her current medication regimen updated current review of systems updated today as well. We will proceed with lumbar epidural steroid injection today with fluoroscopic guidance. Risks were discussed including but not limited to: Bleeding, infection, possibility of epidural hematoma and subsequent neurological compromise, dural puncture, headaches, spinal cord and/or nerve damage, side effects of steroid medication, and poor results regarding pain control. Patient understands and wished to proceed. Patient will return to clinic in approximately 2 weeks for follow-up, was counseled as return appointment, activity level, and side effect to be aware of. Medication Injected: Med Injected: Procedure is lumbar epidural steroid injection under local anesthetic using sterile prep and drape at the L5-S1 level using C-arm fluoroscopic guidance in both AP and lateral views medications injected is 120 mg Depo-Medrol +10mL preservative-free normal saline and 2 mL contrast- condition at discharge is stable patient tolerated procedure well had no complications. Condition at Discharge: Condition at Discharge: Condition at discharge stable, patient tolerated procedure well and had no complications. NABIL GOTTI MD Apr 21, 2021 12:39
--- NOTE | 2021-04-21 12:40 | PDOC4 ---
Procedure Note: ICD 10 Code: ICD 10 Code: M54.17 M51.87 M4 8.07 Procedure Note: Patient was consented for lumbar epidural steroid injection with fluoroscopic guidance. Risks were discussed including but not limited to: Bleeding, infection, possibility of epidural hematoma and subsequent neurological compromise, dural puncture, headaches, spinal cord and/or nerve damage, side effects of steroid medication, and poor results regarding pain control. Patient understands and wished to proceed. Procedure is lumbar epidural steroid injection under local anesthetic using corry rile prep and drape at the L5-S1 level using C-arm fluoroscopic guidance in both AP and lateral views medications injected is 120 mg Depo-Medrol +10mL preservative-free normal saline and 2 mL contrast- condition at discharge is stable patient tolerated procedure well had no complications. NABIL GOTTI MD Apr 21, 2021 12:40
== END | disposition home or self-care (01) ==
LOC: PNCL 10:44
PROVIDERS: ATTEND Anesthesiology
DX: M51.16 Intervertebral disc disorders with radiculopathy, lumbar region (principal); M48.061 Spinal stenosis, lumbar region without neurogenic claudication; F41.9 Anxiety disorder, unspecified; F32.9 Major depressive disorder, single episode, unspecified; Z98.51 Tubal ligation status; Z98.890 Other specified postprocedural states; Z79.899 Other long term (current) drug therapy; Z87.891 Personal history of nicotine dependence; Z72.89 Other problems related to lifestyle
CPT/HCPCS: 62323; J1030; J1040; Q9965

== ENCOUNTER → 2021-06-30 | Outpatient (CLI) | payer OTHER ==
[~2021-06-30] MED LIST changes: -IOHEXOL 180 MG/ML 10 ML VIAL. ONE; -methylPREDNISolone ACETATE 40 MG/ML VIAL. ONE; -methylPREDNISolone ACETATE 80 MG/ML VIAL. ONE
--- NOTE | 2021-06-30 09:35 | PDOC ---
Progress Note - Pain Clinic Date of Service: DOS: DATE: 06/30/21 TIME: : Diagnosis: Dx: Lumbar radiculopathy with lumbar degenerative disease and lumbar spinal stenosis History or Present Illness: HPI: 30-year-old female returns for follow-up status post lumbar epidural steroid injection x1 with 100% improvement for the first 2 weeks or so following the injection patient reports she felt completely normal was doing all of her daily activities with greater ease and comfort walking standing working sleeping much better patient reports pain began to return after about 3 to 4 weeks now is in the low back and the right lower extremity not back to baseline but still persistent in the low back and right posterior gluteus posterior thigh posterior calf some in the anterior thigh as well but mostly posteriorly patient reports its worse with walking standing changing position is beginning to disturb her s leep once again but only rarely patient reports a sharp in the back dull in the back as well as burning and aching in the leg stabbing and radiating to the right lower extremity with activity mostly. Patient reports a 9 on scale 10 is worse over the past week 7 on average 5 its least and is a 7 today. Patient reports no bowel or bladder incontinence no loss of motor function with significant fatigability with the right leg with walking stable she has not had any falls or has been stumbling. Patient continues to do stretching strength exercise at home as well as heat application, and is taking oral analgesics ibuprofen as well as Tylenol alternating this when the pain is exacerbated. Physical Exam: VS: Blood pressure is 118/77 pulse 83 respirations 18 temperature 98.3 F weight 143 pounds. PE: PHYSICAL EXAMINATION: GENERAL: The patient is awake, alert, oriented, appropriate, very pleasant in demeanor HEENT: Shows normocephalic, atraumatic. Extraocular movements are intact and symmetrical. Oral cavity: Mucous membranes moist and pink. Dentition is intact. NECK: Shows anterior throat supple without palpable lymphadenopathy noted. Swallow reflex symmetrical. CHEST: Shows normal on inspection. Breath sounds are clear bilaterally, no rales rhonchi wheezes auscultated. HEART: Shows S1, S2 clear. No murmurs auscultated. ABDOMEN: Soft, nontender, nondistended. No palpable organomegaly is noted. BACK: Shows spine grossly in the midline. Normal-appearing cervical lordotic curvature. There is slightly increased thoracic kyphosis, some minor flattening of the lumbar lordotic curvature. Lumbar paraspinous muscles show symmetrical on inspection, on palpation shows some moderate tenderness diffusely throughout the upper, middle and lower distribution of the paraspinous muscles, but without specific trigger points, without radiation of pain. The patient has good rotational motion of the lumbar spine, both laterally as well as extension and flexion without significant difficulty. EXTREMITIES: Lower extremities show deep tendon reflexes 2+ in the patellar and tendo calcaneus tendons. Motor exam is 4 on a scale of 5 with right dorsiflexion, extension, quadriceps and hamstring flexion and 5/5 on the left. Peripheral pulses are 1+ posterior tibial. No peripheral edema is noted bilaterally. Lower extremities are warm and dry. Patient has mild positive straight leg raise on the right at approximate 45 degrees decreased with knee flexion, left side is negative. SKIN: Shows warm and dry, good turgor. No edema. No sores, rashes or bruising throughout. Procedure: Procedure: Options discussed with the patient. Patient's chart was reviewed as her current medication regimen updated current review of systems today as well. We will preauthorize patient for a lumbar epidural steroid injection she is done very w ell with these in the past with a near 1% improvement for 2 weeks following the last injection patient continues to have persistent radiculopathy in an L5-S1 dermatomal distribution on the right despite home therapy and exercises heat application as well as oral analgesics and anti-inflammatories. Once approved, patient will return for a translaminar approach L5-S1 lumbar epidural steroid injection with fluoroscopic guidance. Medication Injected: Med Injected: None Condition at Discharge: Condition at Discharge: Condition at discharge is stable. NABIL GOTTI MD Jun 30, 2021 09:35
== END | disposition home or self-care (01) ==
LOC: PNCL 09:00
PROVIDERS: ATTEND Anesthesiology
DX: M51.16 Intervertebral disc disorders with radiculopathy, lumbar region (principal); M48.061 Spinal stenosis, lumbar region without neurogenic claudication; F41.9 Anxiety disorder, unspecified; F32.9 Major depressive disorder, single episode, unspecified; Z98.51 Tubal ligation status; Z98.890 Other specified postprocedural states; Z79.899 Other long term (current) drug therapy; Z87.891 Personal history of nicotine dependence; Z72.89 Other problems related to lifestyle
CPT/HCPCS: 99212; G0463

== ENCOUNTER → 2021-07-21 | Outpatient (CLI) | payer OTHER ==
[~2021-07-21] MED LIST changes: +IOHEXOL 180 MG/ML 10 ML VIAL. ONE
--- NOTE | 2021-07-21 12:12 | PDOC ---
Progress Note - Pain Clinic Date of Service: DOS: DATE: 07/21/21 TIME: 12:07 Diagnosis: Dx: Lumbar radiculopathy with lumbar degenerative disease and lumbar spinal stenosis History or Present Illness: HPI: 30-year-old female returns for follow-up status post lumbar epidural steroid injection April 21, 2021 patient did very well with 1% improvement initially and gradually return to about a 50% improvement patient reports the pain is now more noticeable on her left leg and her right leg but is present bilaterally patient reports initially her right leg was only area of concern in the lower extremities but still pain across the low back now the left side is much more significant patient reports her pain is a 9 on scale 10 is worse over the past week 7 on average 5 its least and is a 5 today patient reports sharp tight shooting can be burning cramping and constant with activity better with sitting or laying down generally awakens her from sleep about once to twice a night at the most. Initially patient is doing much better with distance walking doing household activities work activities travel with greater ease and comfort and sleeping better now again the pain is began to return and now is specifically more noticeable on the left side. Patient reports no bowel or bladder in continence no significant motor deficits. Physical Exam: VS: Blood pressure is 130/85 pulse 72 respirations 18 temperature 98.2 F height 5 feet 6 inches weight is 144 pounds. PE: PHYSICAL EXAMINATION: GENERAL: The patient is awake, alert, oriented, appropriate, very pleasant in demeanor HEENT: Shows normocephalic, atraumatic. Extraocular movements are intact and symmetrical. Oral cavity: Mucous membranes moist and pink. NECK: Shows anterior throat supple without palpable lymphadenopathy noted. Swallow reflex symmetrical. CHEST: Shows normal on inspection. Breath sounds are clear bilaterally. HEART: Shows S1, S2 clear. No murmurs auscultated. ABDOMEN: Soft, nontender, nondistended. No palpable organomegaly is noted. No rebound or guarding demonstrated. BACK: Shows spine grossly in the midline. Normal-appearing cervical lordotic curvature. There is slightly increased thoracic kyphosis, some minor flattening of the lumbar lordotic curvature with well-healed midline surgical scar. Lumbar paraspinous muscles show symmetrical on inspection, on palpation shows some moderate tenderness diffusely throughout the upper, middle and lower distribution of the paraspinous muscles without specific trigger points, without radiation of pain. The patient has good rotational motion of the lumbar spine, both laterally as well as extension and flexion without significant difficulty. EXTREMITIES: Lower extremities show deep tendon reflexes 2+ in the patellar and tendo calcaneus tendons. Motor exam is 4 on a scale of 5 with right dorsiflexion, extension, quadriceps and hamstring flexion and 5/5 on the left. Peripheral pulses are 1+ posterior tibial. No peripheral edema is noted bilaterally. Lower extremities are warm and dry to touch, equal in color and appearance. SKIN: Shows warm and dry, good turgor. No edema. No sores, rashes or bruising throughout. Procedure: Procedure: Options were discussed with patient. Patient chart reviews her current medication regimen updated current review of systems updated today as well. We will proceed with a lumbar epidural steroid injection today with fluoroscopic guidance. Risks were discussed including but not limited to: Bleeding, infect ion, possibility of epidural hematoma and subsequent neurological compromise, dural puncture, headaches, spinal cord and/or nerve damage, side effects of steroid medication, and poor results regarding pain control. Patient understands and wished to proceed. Patient will return to the clinic in approximately 2 weeks for follow-up, was counseled as to return appointment, active level, and side effect to be aware of. Medication Injected: Med Injected: Procedure is lumbar epidural steroid injection under local anesthetic using sterile prep and drape at the L5-S1 level using C-arm fluoroscopic guidance in both AP and lateral views medications injected is 20 mg dexamethasone +10mL preservative-free normal saline and 2 mL contrast- condition at discharge is stable patient tolerated procedure well had no complications. Condition at Discharge: Condition at Discharge: Condition at discharge is stable, patient tolerated the procedure well and had no complications. NABIL GOTTI MD Jul 21, 2021 12:12
--- NOTE | 2021-07-21 12:13 | PDOC4 ---
Procedure Note: ICD 10 Code: ICD 10 Code: M54.17 M51.87 M4 8.07 Procedure Note: Patient is consented for lumbar epidural steroid injection with fluoroscopic guidance. Risks were discussed including but not limited to: Bleeding, infection, possibility of epidural hematoma and subsequent neurological compromise, dural puncture, headaches, spinal cord and/or nerve damage, side effects of steroid medication, and poor results regarding pain control. Patient understands and wished to proceed. Procedure is lumbar epidural steroid injection under local anesthetic using ster ile prep and drape at the L5-S1 level using C-arm fluoroscopic guidance in both AP and lateral views medications injected is 20 mg dexamethasone +10mL preservative-free normal saline and 2 mL contrast- condition at discharge is stable patient tolerated procedure well had no complications. NABIL GOTTI MD Jul 21, 2021 12:13
== END | disposition home or self-care (01) ==
LOC: PNCL 10:59
PROVIDERS: ATTEND Anesthesiology
DX: M51.16 Intervertebral disc disorders with radiculopathy, lumbar region (principal); M48.061 Spinal stenosis, lumbar region without neurogenic claudication; F41.9 Anxiety disorder, unspecified; F32.9 Major depressive disorder, single episode, unspecified; Z98.51 Tubal ligation status; Z98.890 Other specified postprocedural states; Z87.891 Personal history of nicotine dependence; Z79.899 Other long term (current) drug therapy; Z72.89 Other problems related to lifestyle
CPT/HCPCS: 62323; Q9965

== ENCOUNTER → 2021-08-05 | Outpatient (CLI) | payer OTHER ==
[~2021-08-05] MED LIST changes: -IOHEXOL 180 MG/ML 10 ML VIAL. ONE
--- NOTE | 2021-08-05 08:26 | PDOC ---
Progress Note - Pain Clinic Date of Service: DOS: DATE: 08/05/21 TIME: 08:23 Diagnosis: Dx: Lumbar radiculopathy with lumbar degenerative disease lumbar spinal stenosis lumbar postlaminectomy syndrome History or Present Illness: HPI: 30-year-old female returns for follow-up status post lumbar epidural steroid injections x2. Patient reports only about 1 day of decreased pain by about 50% with the pain returning in the low back and the bilateral lower extremities with pain rating to the anterior thighs mostly into the medial thighs and lateral thighs as well as across the low back slightly worse on the right than the left report today patient reports her pain is a 9 on scale 10 is worse over the past week 7 on average 4 to [place] is a 7 today patient describes that sharp and shooting in the legs burning across the low back constant aching worse with walking standing changing positions better with sitting or laying down but wakes her from sleep about every 5 hours she can be to reposition or take pain medication to get back to sleep patient reports no loss of motor function but significant fatigability in both lower extremities again worse on the right than the left with walking and standing. Patient reports worse when getting up from a seated position as well as standing in 1 position for greater than 5 to 10 minutes. Patient reports no bowel or bladder incontinence. Physical Exam: VS: Blood pressure is 122/79 pulse 80 respirations 18 temperature 98.3 F height is 5 feet 6 inches weight is 142 pounds. PE: PHYSICAL EXAMINATION: GENERAL: The patient is awake, alert, oriented, appropriate, very pleasant in demeanor HEENT: Shows normocephalic, atraumatic. Extraocular movements are intact and symmetrical. Oral cavity: Mucous membranes moist and pink. Dentition is intact. NECK: Shows anterior throat supple without palpable lymphadenopathy noted. S wallow reflex symmetrical. CHEST: Shows normal on inspection. Breath sounds are clear bilaterally, no rales rhonchi wheezes auscultated. HEART: Shows S1, S2 clear. No murmurs auscultated. ABDOMEN: Soft, nontender, nondistended. No palpable organomegaly is noted. BACK: Shows spine grossly in the midline. Normal-appearing cervical lordotic curvature. There is slightly increased thoracic kyphosis, some minor flattening of the lumbar lordotic curvature with well-healed midline surgical scar. Lumbar paraspinous muscles show symmetrical on inspection, on palpation shows some moderate tenderness diffusely throughout the upper, middle and lower distribution of the paraspinous muscles without specific trigger points, without radiation of pain. The patient has good rotational motion of the lumbar spine, both laterally as well as extension and flexion without significant difficulty. No tenderness over the spinous processes, sacrum or sacroiliac regions. EXTREMITIES: Lower extremities show deep tendon reflexes 2+ in the patellar and tendo calcaneus tendons. Motor exam is 4 on a scale of 5 with right dorsiflexion, extension, quadriceps and hamstring flexion and 5/5 on the left. Peripheral pulses are 1+ posterior tibial. No peripheral edema is noted bilaterally. Lower extremities are warm and dry to touch, equal in color and appearance. SKIN: Shows warm and dry, good turgor. No edema. No sores, rashes or bruising throughout. Procedure: Procedure: Options were discussed with patient. Patient's chart was viewed as her current medication regimen updated current review of systems updated today as well. We discussed options and patient would like to follow-up with her neurosurgeon regarding surgical options at this time. We will make these arrangements and have patient follow-up as necessary. Medication Injected: Med Injected: None Condition at Discharge: Condition at Discharge: Condition at discharge is stable. NABIL GOTTI MD Aug 05, 2021 08:26
== END | disposition home or self-care (01) ==
LOC: PNCL 07:51
PROVIDERS: ATTEND Anesthesiology
DX: M51.16 Intervertebral disc disorders with radiculopathy, lumbar region (principal); M48.061 Spinal stenosis, lumbar region without neurogenic claudication; M96.1 Postlaminectomy syndrome, not elsewhere classified; F41.9 Anxiety disorder, unspecified; F32.9 Major depressive disorder, single episode, unspecified; Z98.51 Tubal ligation status; Z98.890 Other specified postprocedural states; Z87.891 Personal history of nicotine dependence; Z72.89 Other problems related to lifestyle
CPT/HCPCS: 99212; G0463

== ENCOUNTER → 2021-08-25 | Outpatient (CLI) | payer OTHER ==
--- NOTE | 2021-08-25 14:34 | PDOC ---
Progress Note - Pain Clinic Date of Service: DOS: DATE: 08/25/21 TIME: 14:28 Diagnosis: Dx: Lumbar degenerative disease lumbar spinal stenosis Lumbar and lumbosacral spondylosis History or Present Illness: HPI: 31-year-old female returns for follow-up status post lumbar epidural steroid injection and neurosurgical consultation most recently with no surgical indication currently with recommendations for more conservative treatments. Patient reports the pain is changed and now is just in the low back without radiation to the lower extremities patient report is worse with walking standing changing position especially standing still for more than about 10 minutes that she has to sit and rest patient reports is much worse on the left side than the right but present bilaterally activity makes it much worse is been taking ibuprofen which does decrease the pain but only by about 25% also Tylenol which helps slightly. Patient continues doing stretching and strength exercises daily and has been walking as tolerated daily which is becoming more difficult with time and pain in the low back. As well patient reports no loss of motor function no bowel or bladder incontinence and again no significant pain radiating to the lower extremities at this time only in the back itself left greater than right but present bilaterally. Patient reports is worse with reaching overhead with her hands and extension of the lumbar spine rates it as shooting and sharp in the back burning and stabbing and can be constant again especially with standing still such as standing at the sink. We will add encounter. Patient reports it wakes her from sleep about every 5 hours or so. Patient reports no loss of motor function no bowel or bladder incontinence. Physical Exam: VS: Blood pressure is 116/78 pulse 83 respirations 18 temperature is 98.4 F weight is 142 pounds. PE: PHYSICAL EXAMINATION: GENERAL: The patient is awake, alert, oriented, appropriate, very pleasant in demeanor HEENT: Shows normocephalic, atraumatic. Extraocular movements are intact and symmetrical. Oral cavity: Mucous membranes moist and pink. Dentition is intac t. NECK: Shows anterior throat supple without palpable lymphadenopathy noted. Swallow reflex symmetrical. CHEST: Shows normal on inspection. Breath sounds are clear bilaterally, no rales rhonchi or wheezes auscultated. HEART: Shows S1, S2 clear. No murmurs auscultated. ABDOMEN: Soft, nontender, nondistended. No palpable organomegaly is noted. BACK: Shows spine grossly in the midline. Normal-appearing cervical lordotic curvature. There is slightly increased thoracic kyphosis, some minor flattening of the lumbar lordotic curvature with well-healed midline surgical scar again noted. Lumbar paraspinous muscles show symmetrical on inspection, on palpation shows some moderate tenderness diffusely throughout the upper, middle and lower distribution of the paraspinous muscles, but without specific trigger points, without radiation of pain. The patient has good rotational motion of the lumbar spine, both laterally as well as extension and flexion with significant tenderness with extension and axial loading of the lumbar spine but with forward flexion 45 degrees right and left lateral rotation greater than 10 degrees does cause significant pain more on the left than the right but present bilaterally without radiation. No tenderness over the spinous processes, sacrum or sacroiliac regions. EXTREMITIES: Lower extremities show deep tendon reflexes 2+ in the patellar and tendo calcaneus tendons. Motor exam is 4 on a scale of 5 with right dorsiflexion, extension, quadriceps and hamstring flexion and 5/5 on the left. Peripheral pulses are 1+ posterior tibial. No peripheral edema is noted bilaterally. Lower extremities are warm and dry to touch, equal in color and appearance. SKIN: Shows warm and dry, good turgor. No edema. No sores, rashes or bruising throughout. Procedure: Procedure: Options were discussed with the patient. Patient's old chart was reviewed as her current medication regimen updated current review of systems updated today as well. Patient with significant axial back pain especially with axial loading of the lumbar spine without radiation to the lower extremities. We will preauthorize patient for bilateral lumbar facet medial branch blocks with fluoroscopic guidance. Patient will return to clinic after preauthorization and we will plan on bilateral L4-5 and L5-S1 medial branch facet blocks with fluoroscopic guidance. Patient also was given new prescription for ibuprofen at 800 mg, 3 times daily as needed for pain. Medication Injected: Med Injected: None Condition at Discharge: Condition at Discharge: Condition at discharge is stable. NABIL GOTTI MD Aug 25, 2021 14:34
== END | disposition home or self-care (01) ==
LOC: PNCL 13:16
PROVIDERS: ATTEND Anesthesiology
DX: M51.36 Other intervertebral disc degeneration, lumbar region (principal); M48.061 Spinal stenosis, lumbar region without neurogenic claudication; M47.816 Spondylosis without myelopathy or radiculopathy, lumbar region; M47.817 Spondylosis without myelopathy or radiculopathy, lumbosacral region; F41.9 Anxiety disorder, unspecified; F32.9 Major depressive disorder, single episode, unspecified; Z98.51 Tubal ligation status; Z98.890 Other specified postprocedural states; Z79.899 Other long term (current) drug therapy; Z87.891 Personal history of nicotine dependence; Z72.89 Other problems related to lifestyle
CPT/HCPCS: 99212; G0463

== ENCOUNTER → 2021-09-08 | Outpatient (CLI) | payer OTHER ==
[~2021-09-08] MED LIST changes: +BUPIVACAINE MPF 0.25% 10 ML VIAL. ONE; +DEXAMETHASONE PRES.FREE 10 MG/ML VIAL. ONE; +IBUP-1060 PO; +IOHEXOL 180 MG/ML 10 ML VIAL. ONE
--- NOTE | 2021-09-08 13:45 | PDOC ---
Progress Note - Pain Clinic Date of Service: DOS: DATE: 09/08/21 TIME: 13:41 Diagnosis: Dx: Lumbar degenerative disease lumbar spinal stenosis lumbar postlaminectomy syndrome and lumbar and lumbosacral spondylosis History or Present Illness: HPI: 31-year-old female returns for follow-up status post neurosurgical evaluation and recommendation for conservative treatment. Patient with pain across the low back left greater than right without radiation to the lower extremities pain worse with standing changing position better with sitting or resting but wakes her from sleep at least once or twice a night patient reports is across the low back worse with reaching upwards and reaching over her head with her hands described as a 10 on scale 10 is worse over the past week 8 on average 7 at its least is an 8 today patient report is sharp and shooting across the back burning stabbing can be constant and severe in the low back as well as radiating across the low back again worse with standing walking better with sitting for prolonged sitting greater than about 1 hour the pain begins to return significantly across the low back again worse on the left than the right. Patient reports no bowel or bladder incontinence no loss of motor function but significant fatigability of the left leg that is worse with ambulation. Physical Exam: VS: Blood pressure is 124/77 pulse 85 respirations 20 temperature is 98.2 F height is 5 foot 6 inches weight is 140 pounds. PE: PHYSICAL EXAMINATION: GENERAL: The patient is awake, alert, oriented, appropriate, very pleasant and demeanor HEENT: Shows normocephalic, atraumatic. Extraocular movements are intact and symmetrical. Oral cavity: Mucous membranes moist and pink. Dentition is intact. NECK: Shows anterior throat supple without palpable lymphadenopathy noted. Swallow reflex symmetrical. CHEST: Shows normal on inspection. Breath sounds are clear bilaterally. HEART: Shows S1, S2 clear. No murmurs auscultated. ABDOMEN: Soft, nontender, nondistended. No palpable organomegaly is noted. BACK: Shows spine grossly in the midline. Normal-appearing cervical lordotic curvature. There is slightly increased thoracic kyphosis, some minor flattening of the lumbar lordotic curvature. Lumbar paraspinous muscles show symmetrical on inspection, on palpation shows some moderate tenderness diffusely throughout the upper, middle and lower distribution of the paraspinous muscles, but without specific trigger points, without radiation of pain. The patient has good rot ational motion of the lumbar spine, both laterally as well as extension and flexion with significant tenderness with extension and axial loading of the lumbar spine as well as left greater than right lateral rotation past 10 degrees very significant tenderness on the left side compared to moderate tenderness on the right forward flexion is performed with out significant tenderness at 45 degrees anteriorly. EXTREMITIES: Lower extremities show deep tendon reflexes 2+ in the patellar and tendo calcaneus tendons. Motor exam is 5 on a scale of 5 with right dorsiflexion, extension, quadriceps and hamstring flexion and 4/5 on the left. Peripheral pulses are 1+ posterior tibial. No peripheral edema is noted bilaterally. Lower extremities are warm and dry to touch, equal in color and appearance. SKIN: Shows warm and dry, good turgor. No edema. No sores, rashes or bruising throughout. Procedure: Procedure: Options were discussed with the patient. Patient's old chart was reviewed as her current medication regimen updated review systems updated today as well. We will proceed with bilateral L4-5 and L5-S1 facet medial branch blocks today with fluoroscopic guidance. Risks were discussed including but not limited to: Bleeding, infection, possibility of epidural hematoma and subsequent neurological compromise, dural puncture, headaches, spinal cord and/or nerve damage, side effects of steroid medication, and poor results regarding pain control. Patient understands and wished to proceed. Patient return to clinic in approximately 2 weeks for follow-up, was counseled as to return appointment, activity level, and side effects to be aware of. Medication Injected: Med Injected: Under sterile prep and drape using C-arm fluoroscopic guidance AP and lateral and oblique views, bilateral L4-5 and L5-S1 facet joint MB's injections were per formed, using 22-gauge quinke needles with stylette's x4,, medications injected: 20 mg dexamethasone +4 cc 0.25% bupivacaine +2 cc contrast. Condition at discharge is stable, patient tolerated the procedure well and no complications. Condition at Discharge: Condition at Discharge: Condition at discharge stable, paced tolerated procedure well and had no complications. NABIL GOTTI MD September 08, 2021 13:45
--- NOTE | 2021-09-08 13:46 | PDOC4 ---
Procedure Note: ICD 10 Code: ICD 10 Code: M4 7.816 M4 7.817 Procedure Note: Patient was consented for bilateral L4-5 and L5-S1 facet medial branch blocks with fluoroscopic guidance. Risks were discussed including but not limited to: Bleeding, infection, possibility of epidural hematoma and subsequent neurological compromise, dural puncture, headaches, spinal cord and/or nerve damage, side effects of steroid medication, and poor results regarding pain control. Patient understands and wished to proceed. Under sterile prep and drape using C-arm fluoroscopic guidance AP and lateral and oblique views, bilateral L4-5 and L5-S1 facet joint MB's injections were performed, using 22-gauge quinke needles with stylette's x4,, medications injected: 20 mg dexamethasone +4 cc 0.25% bupivacaine +2 cc contrast. Condition at discharge is stable, patient tolerated the procedure well and no complications. NABIL GOTTI MD September 08, 2021 13:45
== END | disposition home or self-care (01) ==
LOC: PNCL 12:52
PROVIDERS: ATTEND Anesthesiology
DX: M51.36 Other intervertebral disc degeneration, lumbar region (principal); M47.816 Spondylosis without myelopathy or radiculopathy, lumbar region; M47.817 Spondylosis without myelopathy or radiculopathy, lumbosacral region; M96.1 Postlaminectomy syndrome, not elsewhere classified; M48.061 Spinal stenosis, lumbar region without neurogenic claudication; F41.9 Anxiety disorder, unspecified; F32.9 Major depressive disorder, single episode, unspecified; Z98.51 Tubal ligation status; Z98.890 Other specified postprocedural states; Z79.899 Other long term (current) drug therapy; Z72.89 Other problems related to lifestyle
CPT/HCPCS: 64493; 64494; J1100; J3490; Q9965

== ENCOUNTER → 2021-09-25 | Outpatient (CLI) | payer OTHER ==
[~2021-09-25] MED LIST changes: -BUPIVACAINE MPF 0.25% 10 ML VIAL. ONE; -DEXAMETHASONE PRES.FREE 10 MG/ML VIAL. ONE; +IOHEXOL 180 MG/ML 10 ML VIAL. EPID ONE; -IOHEXOL 180 MG/ML 10 ML VIAL. ONE; +LIDOCAINE 1% Multi-Dose 20 ML VIAL. ONE; +LIDOCAINE 1% PF 5 ML VIAL. INJ ONE; +LIDOCAINE 2% Multi-Dose 20 ML VIAL. IJ ONE
--- NOTE | 2021-09-25 10:50 | RAD ---
XR MYELOGRAM LUMBAR History:Reason: LUMBAR RADICULOPATHY, Technique: Patient was informed of the risks of the procedure to include pain, infection, bleeding an d allergic reaction to the contrast. All questions were answered. Patient signed a written consent fo for a lumbar myelogram. The patient was placed in a prone oblique position on the flouroscopy table. External site of the low er back was prepped and draped in the usual sterile fashion. Betadine was utilized for cleansing solu tion. 1% lidocaine was utilized for local anesthesia at the anticipated site of puncture L4. A 22-ga uge spinal needle was advanced towards the thecal sac under intermittent fluoroscopic guidance at L4. The patient experienced significant pain at this level. The needle was removed. Additional site was anesthetized at the L3 level with 22-gauge spinal needle advanced towards the thecal sac under interm ittent fluoroscopic guidance. Initially no CSF was returned. Lateral radiograph was obtained demonstr ating needle at the level of the thecal sac. The patient's head was raised and CSF was returned. Appr oximately 13 cc of Isovue 180 were then injected during fluoroscopic visualization. The needles were removed. Hemostasis was obtained and sterile dressing was applied. Fluoroscopic spot images were acquired of the lumbar spine. The patient was then transferred to the C T department. There were no immediate complications. Fluoroscopy time: 1.5 minutes Number of fluoroscopic images: 7 Findings: No obstruction to contrast flow. Impression: 1. Successful lumbar puncture for lumbar myelogram. CT lumbar spine to follow. Electronically signed by: Tremayne Escobedo DO (09/25/2021 10:47 AM) [id number]
--- NOTE | 2021-09-25 11:03 | RAD ---
CT LUMBAR SPINE W History:Reason: LUMBAR RADICULOPATHY / Spl. Instructions: POST MYELOGRAM / History: Technique: CT imaging was performed of the lumbar spine after injection for intrathecal contrast. Mul tiplanar reconstruction images are submitted. See lumbar spine myelogram procedure note for further details. Exposure: One or more of the following individualized dose reduction techniques were utilized for thi s examination: 1. Automated exposure control 2. Adjustment of the mA and/or kV according to patient size 3. Use of iterative reconstruction technique. Comparison: MRI February 25, 2021 Findings: Prior left L5 hemilaminectomy. Minimal retrolisthesis L5 on S1. Normal vertebral body height. No acut e fracture. Small amount of contrast within the left posterior epidural space at the L1-L4 level as well as poste rior paraspinal soft tissues at the L3 level related to contrast injection. Additional small amount o f contrast within the left anterior epidural space at the L4 level related to initial lumbar puncture with CSF return. Mild anterior positioning of the conus and nerve roots within the upper and mid lumbar spine. Conus t erminates normally. T12-L1: No canal or neuroforaminal narrowing. L1-L2: No canal or neuroforaminal narrowing. L2-L3: No canal or neuroforaminal narrowing. L3-L4: Minimal disc bulge. No canal or neuroforaminal narrowing. L4-L5: Small central disc protrusion, similar compared to prior. Mild some particular recess narrowi ng. Abutment of the descending L5 nerve roots. Mild canal narrowing. No neuroforaminal narrowing. L5-S1: Small disc bulge. Mild subarticular recess narrowing. No canal narrowing. Abutment of descend ing S1 nerve roots. Unchanged compared to prior. Mild bilateral neuroforaminal narrowing, unchanged. Impression: 1. Mild lumbar spondylosis most prominent L4-5 and L5-S1, similar compared to prior MRI. 2. L4-5 central disc protrusion contributing to mild canal and subarticular recess narrowing abutmen t of descending L5 nerve roots. Correlate for radiculopathy. 3. Mild L5-S1 neuroforaminal narrowing, unchanged. 4. Small volume epidural and left posterior paraspinal contrast related to lumbar puncture. 5. Relative anterior positioning of the conus and nerve roots within the upper to mid lumbar spine, may relate to mixed subdural and intrathecal injection. Electronically signed by: Tremayne Escobedo DO (09/25/2021 11:01 AM) [id number]
== END ==
LOC: RAD 08:33
PROVIDERS: ATTEND Neurological Surgery
DX: M47.26 Other spondylosis with radiculopathy, lumbar region (principal); M51.16 Intervertebral disc disorders with radiculopathy, lumbar region; M43.17 Spondylolisthesis, lumbosacral region; M48.07 Spinal stenosis, lumbosacral region; F41.9 Anxiety disorder, unspecified; F32.9 Major depressive disorder, single episode, unspecified; Z98.51 Tubal ligation status; Z98.890 Other specified postprocedural states; Z79.899 Other long term (current) drug therapy
CPT/HCPCS: 62304; 72132; Q9965